=== PATIENT | female | born 1990 | race Caucasian/White ===

== ENCOUNTER 2020-09-23 14:00 | Outpatient (CLI) | payer OTHER ==
--- NOTE | 2020-09-24 15:48 | Mammography Report ---
BILATERAL DIGITAL SCREENING MAMMOGRAM 3D/2D: 09/23/2020 CLINICAL: Baseline exam. Routine screening. Family history of breast cancer. No prior exams were available for comparison. The tissue of both breasts is extremely dense, which l owers the sensitivity of mammography. No significant masses, calcifications, or other findings are seen in either breast. IMPRESSION: NEGATIVE There is no mammographic evidence of malignancy. A 1 year screening mammogram is recommended. This exam was interpreted at Station ID: [id number]. NOTE: For mammograms, a report in lay terms will be sent to the patient. Approximately 15% of breast malignancies will not be visualized mammographically. In the management of a palpable breast mass, a negative mammogram must not discourage biopsy of a clinically suspicious lesion. Electronically Signed By: Simone Jordan M.D., jr/maranda:09/23/2020 14:52:45 ACR BI-RADS Category 1: Negative 3341F PARENCHYMAL PATTERN: (VD) - The breast(s) demonstrate(s) extremely dense parenchyma, limiting the sen sitivity of mammography. BI-RADS CATEGORY: (1) - 1 RECOMMENDATION: (ANNUAL) - Recommend routine annual screening mammography. [id number] 1 year screening LATERALITY: (B)
== END 2020-09-23 14:01 | disposition home or self-care (01) ==
LOC: DI 14:00
DX: Z12.31 Encounter for screening mammogram for malignant neoplasm of breast (principal); Z80.3 Family history of malignant neoplasm of breast

== ENCOUNTER 2023-03-24 19:50 | Outpatient (CLI) | payer BC, OTHER ==
--- NOTE | 2023-03-24 22:04 | Ultrasound Report ---
PROCEDURE: OB 1st Trimester w/TV INDICATIONS: SCREENING FOR UNCERTAIN DATES OUTSIDE/PRIOR DATING DATA: Last menstrual period (LMP): 01/27/2023. LMP-based estimated date of delivery (JAMEY): 11/03/2023. TECHNIQUE: Real-time scanning was performed of the fetus and maternal pelvic organs, with image documentation. Endovaginal scanning was also performed to better visualize the fetus and maternal ovaries. COMPARISON: None. FINDINGS: Vertically oriented, slightly retroflexed uterus contains a fundal fluid collection with m oderate decidual response. Mean gestational sac diameter is 20.1 mm corresponding to a 6 week 6 day g estation. A yolk sac is present measuring 6 mm in diameter, slightly enlarged. A pole and amnion are seen . There is no detectable cardiac activity and pole. The average crown-rump length is 6.4 mm whi ch would correspond to a 6 week 3 day gestation. The right ovary contains a thin-walled cyst measuring 2.2 cm in diameter. No significant peripheral v ascularity. There is a second hemorrhagic appearing right ovarian cyst measuring 2 cm. The left ovary is normal follicular echotexture. There is a small inactive implantation bleed without mass effect m easuring 1.1 cm in thickness. The cervix is closed. No free fluid in the cul-de-sac. IMPRESSION: Single intrauterine with gestational age by crown-rump length of 6 weeks 3 days. No detectable cardiac activity. Findings are suspicious but not diagnostic of failure . Recommend follow-up imaging for viability in 7-10 days. Preliminary results given by the lathe hand to the ordering provider immediately following the study . Reviewed by: Ada Craft MD on 03/24/2023 10:03 PM PST Approved by: Ada Craft MD on 03/24/2023 10:03 PM PST Station ID: [id number]
== END 2023-03-24 19:51 | disposition home or self-care (01) ==
LOC: DI 19:50
PROVIDERS: ATTEND Nurse Practitioner Obstetrics & Gynecology
DX: Z36.87 Encounter for antenatal screening for uncertain dates (principal)

== ENCOUNTER 2023-03-26 12:24 | Outpatient (CLI) | payer BC | END 2023-03-26 12:25 | disposition home or self-care (01) | LOC: LAB 12:24 | PROVIDERS: ATTEND Nurse Practitioner Obstetrics & Gynecology | DX: O36.0190 Maternal care for anti-D [Rh] antibodies, unspecified trimester, not applicable or unspecified (principal) | CPT/HCPCS: 36415; 84702; 86900; 86901 ==

== ENCOUNTER 2023-03-28 13:31 | Outpatient (CLI) | payer BC | END 2023-03-28 13:32 | disposition home or self-care (01) | LOC: LAB 13:31 | PROVIDERS: ATTEND Nurse Practitioner Obstetrics & Gynecology | DX: O36.80X0 Pregnancy with inconclusive fetal viability, not applicable or unspecified (principal) | CPT/HCPCS: 36415; 84702 ==

== ENCOUNTER 2023-09-08 08:09 | Outpatient (CLI) | payer BC ==
--- NOTE | 2023-09-08 16:37 | Ultrasound Report ---
PROCEDURE: OB 1st Trimester w/TV INDICATIONS: HIST OF MISCARRIAGE OUTSIDE/PRIOR DATING DATA: Last menstrual period (LMP): 07/15/2023. LMP-based estimated date of delivery (JAMEY): 04/20/2024. First dating scan (date and location): 09/08/2023. Estimated date of delivery (JAMEY) from first dating scan: 04/21/2024. TECHNIQUE: Real-time scanning was performed of the fetus and maternal pelvic organs, with image documentation. Endovaginal scanning was also performed to better visualize the fetus and maternal ovaries. COMPARISON: 2023 FINDINGS: Intrauterine gestational sac present. Embryo: pole 1.42 cm corresponds with a 7 week 5 day gestation Heart rate: 150 bpm. Other: Subchorionic bleed measures 1.2 x 1.2 x 1.1 cm. Measurement variability in dating: +/- 4 weeks by LMP, +/- 7 days by mean sac diameter (use before 6 weeks gestation if crown-rump length not able to be measured), +/- 5 days by crown-rump length (6-12 weeks gestation). Maternal organs: Ovaries left-sided corpus luteum cyst 1.9 x 1.9 x 2.0 cm IMPRESSION: Single live intrauterine corresponds with 7 week 4 day gestation. Subchorionic bleed, 1.2 cm Reviewed by: Trevor Felipe MD on 09/08/2023 3:35 PM AKDT Approved by: Trevor Felipe MD on 09/08/2023 3:35 PM AKDT Station ID: [id number]
== END 2023-09-08 08:10 | disposition home or self-care (01) ==
LOC: DI 08:09
PROVIDERS: ATTEND Nurse Practitioner Obstetrics & Gynecology
DX: O26.21 Pregnancy care for patient with recurrent pregnancy loss, first trimester (principal); O20.8 Other hemorrhage in early pregnancy; Z3A.01 Less than 8 weeks gestation of pregnancy

== ENCOUNTER 2023-10-27 11:22 | Outpatient (CLI) | payer OTHER | END 2023-10-27 11:23 | disposition home or self-care (01) | LOC: LAB 11:22 | PROVIDERS: ATTEND Nurse Practitioner | DX: Z36.0 Encounter for antenatal screening for chromosomal anomalies (principal) ==

== ENCOUNTER 2024-04-26 01:40 | Inpatient (IN) ==
[2024-04-26 02:55] LABS: RUPTURE OF MEMBRANES PLUS POSITIVE (NEGATIVE)
[2024-04-26] MEDS ORDERED: LABETALOL 20 MG/4 ML SYRINGE IVP PRN ×3 (03:30)
[2024-04-26] MEDS ORDERED: fentaNYL 100 MCG/2 ML VIAL IVP PRN (03:30)
[2024-04-26] MEDS ORDERED: lidocaine 1% 20 ML MDV ID PRN (03:30)
[2024-04-26] MEDS ORDERED: OXYTOCIN/SODIUM CHLORIDE 500 ML IV PRN (03:30)
[2024-04-26] MEDS ORDERED: hydrALAZINE INJ 20 MG/ML VIAL IVP PRN (03:30)
[2024-04-26] MEDS ORDERED: OXYTOCIN 10 UNIT/ML VIAL IM PRN (03:30)
[2024-04-26] MEDS ORDERED: TERBUTALINE 1 MG/ML VIAL SUBQ PRN (03:30)
[2024-04-26] MEDS ORDERED: NIFEdipine 10 MG CAPSULE PO PRN (03:30)
[2024-04-26] MEDS ORDERED: TRANEXAMIC ACID IN NACL 1,000 MG/100 ML BAG IV PRN (03:30)
[2024-04-26] MEDS ORDERED: miSOPROStoL 200 MCG TABLET ONE (03:49)
[2024-04-26 04:17] LABS: BASOPHILS % (AUTO) 0.3 %; EOSINOPHILS % (AUTO) 0.5 %; HCT - HEMATOCRIT 36.9 % (37.0-47.0); HGB - HEMOGLOBIN 11.9 g/dL (12.0-16.0); LYMPHOCYTES % (AUTO) 11.8 %; MEAN CORPUSCULAR HEMOGLOBIN 28.6 pg (27.0-31.0); MEAN CORPUSCULAR HGB CONC 32.2 g/dL (32.0-36.0); MEAN CORPUSCULAR VOLUME 88.7 fL (81.0-99.0); MEAN PLATELET VOLUME 9.2 fL (7.9-10.8); MONOCYTES % (AUTO) 6.7 %; NEUTROPHILS % (AUTO) 80.2 %; PLT - PLATELET COUNT 364 10^3/uL (130-450); RED BLOOD COUNT 4.16 10^6/uL (4.20-5.40); WHITE BLOOD COUNT 20.6 x10^3/uL (4.8-10.8)
[2024-04-26] MEDS: AMPICILLIN 2 GM in SODIUM CHLORIDE 0.9% MINIBAG 100 ML IV ONE (04:19)
[2024-04-26] MEDS: LACTATED RINGERS 1,000 ML IV PRN (04:20)
[2024-04-26 04:31] LABS: ABNORMAL LYMPHS % (MANUAL) 0 %
[2024-04-26 04:34] LABS: ALBUMIN 3.4 g/dL (3.2-5.5); ALBUMIN/GLOBULIN RATIO 1.1 (1.0-2.2); BILIRUBIN,TOTAL 0.4 mg/dL (0.2-1.0); CALCIUM 8.3 mg/dL (8.5-10.3); CREATININE 0.7 mg/dL (0.6-1.3); POTASSIUM 4.2 mmol/L (3.5-4.5); TOTAL PROTEIN 6.6 g/dL (6.4-8.9)
[2024-04-26 05:08] LABS: BAND NEUTROPHILS % (MANUAL) 6 %; DIFFERENTIAL COMMENT MANUAL DIFFERENTIAL; LYMPHOCYTES # (MANUAL) 3.7 10^3/uL (1.5-3.5); LYMPHOCYTES % (MANUAL) 18 %; MONOCYTES # (MANUAL) 0.6 10^3/uL (0.0-1.0); NEUTROPHILS # (MANUAL) 16.3 10^3/uL (1.5-6.6); PLATELET ESTIMATE, MANUAL NORMAL (130-450,000) (NORMAL); PLATELET MORPHOLOGY NORMAL APPEARANCE (NORMAL); RBC MORPHOLOGY (MULTIPLE) NORMAL APPEARANCE (NORMAL); WBC MORPHOLOGY (MULTIPLE) NORMAL APPEARANCE (NORMAL)
[2024-04-26] MEDS: AMPICILLIN 1 GM in SODIUM CHLORIDE 0.9% MINIBAG 100 ML IV SCH (08:23)
[2024-04-26] MEDS: SODIUM CHLORIDE FLUSH 0.9% 10 ML SYRINGE IVP PRN (08:29)
--- NOTE | 2024-04-26 08:48 | PROVIDER PROGRESS NOTE ---
HPI Current : Vital Signs Temperature 37.2 C 04/26/24 04:35 Pulse Rate 75 04/26/24 04:35 Respiratory Rate 18 04/26/24 04:35 Blood Pressure 106/71 04/26/24 04:35 O2 Saturation 100 04/26/24 02:10 Procedures Findings: 34 yo @ 40+6 days gestation presented to L&D for triage for labor evaluation and questionable rupture of membranes. Reactive NST, baseline FHT 130-140's, moderate variability, positive accelerations, no decelerations. Contractions q 4-5 minutes. SVE by RN exam, /-2 grossly ruptured. ROM + positive. Orders given for admission.
--- NOTE | 2024-04-26 09:11 | HISTORY & PHYSICAL EXAMINATION ---
Admit History Smoking Status: Never smoker Other Maternal History Other Maternal History: Carli is a 34-year-old @ 40+6 by 7+4 week ultrasound. She presented to Labor and Delivery last night after midnight with regular contractions and questionable rupture of membranes. Believes her water broke 0000 on 04/26/24. She had a small amount of pink-tinged leaking. Her rupture of membranes tested positive, and her cervical exam was 380/-2 cephalic presentation by RN exam (VTX by BSUS yesterday). She has been a patient of [facility] since [facility] for continuity of midwifery services. Her CBC showed hemoglobin of 11.9, hematocrit of 36.9, and platelets of 364. Blood type is O positive with a negative antibody screen. Comprehensive metabolic panel results: creatinine 0.7, AST 25, ALT 16, and ALP 182. Group B strep was positive, and ampicillin for GBS prophylaxis was initiated. No known antibiotic allergies. Management options were reviewed. She wishes to continue with expectant management as she is lev every 3 to 5 minutes, palpating moderately although only rating her pain with contractions 3-4/10 vps. She has done some breast pumping which increased her contractions for a short while. She is pen to augmentation if needed. Risks of infection with repeat cervical exams were discussed, and she is okay with declining a cervical exam at this time. Re-evaluation planned in approximately 4-5 hours. Discussed possible augmentation with misoprostol or oxytocin at that time. She is comfortable with intervention if needed. Preferring to have a low intervention/unmedicated but okay with both if indicated/recommended. Her has been overall, uncomplicated. ROS: No Headache, visual changes or right upper quadrant abdominal pain. Denies significant N/V. Denies urinary urgency or dysuria. All other symptoms reviewed and were negative except per HPI. In the event of an emergency, accepts the administration of blood products. LMP: 07/15/2023 JAMEY by LMP: 04/20/2024 US: @ 7.4wks JAMEY 04/21/2024 Final JAMEY: 04/20/2024 Partner: Bob Vaca Medical Hx: Anxiety. Migraine without aura (pre- sumatriptan) Surgical Hx: None Social Hx: Monogamous with male partner. Denies current use of alcohol or tobacco, marijuana or other recreational drugs. Reports that she is safe in current relationship. Family Hx: Denies family history of congenital anomalies, Cystic Fibrosis or chromosomal abnormalities. Mother has had recurrent breast cancer, dx at age 32. G1: SAB @ 8wks G2: Current. Allergies: NKDA, seasonal RX: aspirin, Zyrtec, Famotadine, PNV, Zofran, reglan FMHX: Mother- Breast cancer Surgeries: None PROBLEMS: Marginal cord insertion 1.5cm from placenta edge. Consider growth ultrasound in the third trimester. Pre- Weight: 138 BMI: 25.2 Blood type: O+ Antibody Screen: neg CBC: PLT/HCT/HGB 480/41.2/13.5 RUB: immune VZV: immune HBsAg: non-reactive HepC: non-reactive RPR: non-reactive HIV: non-reactive Flu: [facility] 12/07 Covid: greens 12/07 PAP: 2022 Normal GC/CT: neg HSV: denies in self and partner Genetic testing: NIPT neg FAS: WNL with the exception of marginal cord insertion (1.57cm from placental edge) - consider ultrasound 32-34wks Placenta:posterior w/o previa Cord: 3VC JACKELINE: 15.8cm WNL EFW: 327.3g 31st%ile 50gm OGCT: 110 3HR GTT: TDAP: 01/24 Breast Pump: 01/24 RSV: 03/19/2024 CBC: PLT 308 /HCT 36.7/HGB 12.7 RPR: NR GBS: 03/26/2024, POSITIVE Delivery plan: MOD: Anticipate PP BC: Physical exam: Normocephalic, atraumatic Abdomen gravid, soft, nontender. EFW 3400 FHR baseline 140, moderate variability, + accelerations, no decelerations Contractions palpate moderate every 2-5 minutes SVE 3/80/-2, vertex, membranes grossly ruptured Bilateral LE's trace edema to ankles Mood is good. Assessment: 34 yo @ 40+6 weeks gestation by 7+4 week ultrasound SROM 04/26/2024 @ 0000, clear/pink tinged fluid Early labor FHR 140 Cat I GBS POSITIVE Plan: Admit to [facility] for Expectant management Reevaluate for augmentation as indicated Intermittent heart rate auscultation. GBS prophylaxis as indicated Jacuzzi PRN. Nitrous oxide PRN. Epidural PRN Maternal Request. Anticipate . HPI Current : Vital Signs Temperature 37.2 C 04/26/24 04:35 Pulse Rate 75 04/26/24 04:35 Respiratory Rate 18 04/26/24 04:35 Blood Pressure 106/71 04/26/24 04:35 O2 Saturation 100 04/26/24 02:10 Meds/Allgy Home Medications Ambulatory Orders Medication Instructions Recorded Confirmed aspirin 81 mg tablet,delayed 81 mg PO QDAY 12/08/23 04/25/24 release cetirizine 10 mg tablet (Zyrtec) 10 mg PO QDAY PRN 12/08/23 04/25/24 famotidine 10 mg tablet (Pepcid AC) 10 mg PO QDAY 12/08/23 04/25/24 vits no.126-ferrous fum tab PO 12/08/23 04/25/24 28 mg iron-folic acid 800 mcg tablet (Classic ) Allergies Allergies Allergy/AdvReac Type Severity Reaction Status Date / Time cat dander Allergy Severe Unknown Verified 04/25/24 13:08 dog dander Allergy Severe Unknown Verified 04/25/24 13:08 house dust Allergy Severe Unknown Verified 04/25/24 13:08 tree and shrub pollen Allergy Severe Unknown Verified 04/25/24 13:08 PFSH Active Problems All Active Problems (Updated 03/31/24 @ 09:30 by DEEDEE Chamorro) Group B Streptococcus carrier, antepartum (Acute) Marginal insertion of umbilical cord affecting management of mother (Acute) Encounter for other specified screening (Acute) Supervision of normal first in second trimester (Acute) Medical History Medical History (Updated 03/31/24 @ 09:30 by DEEDEE Chamorro) Migraines Anxiety Family History Family History (Updated 12/28/23 @ 09:36 by Emily Bowman MA) Mother Breast cancer Social History Social History (Updated 12/05/23 @ 14:59 by Mirna Fonseca LPN) Smoking Status: Never smoker Do you dip or chew tobacco?: No Living arrangement: At home Living Condition: With spouse/s.o. Physical Abdominal Exam Vital Signs: Temp Pulse Resp BP Pulse Ox 37.2 C 75 18 106/71 100 04/26/24 04:35 04/26/24 04:35 04/26/24 04:35 04/26/24 04:35 04/26/24 02:10 Plan for Labor Plan For Labor I expect patient to be DC'd or transferred within 96 hours.: Yes Conclusion/Plan Lab Results 04/26/24 04:06 04/26/24 04:06
--- NOTE | 2024-04-26 12:30 | PHARMACY PROGRESS NOTE ---
Best Possible Medication History Admit Date and Time: 04/26/24 0330 Home Medications Medication Instructions Recorded Confirmed Type aspirin 81 mg tablet,delayed 81 mg PO QDAY 12/08/23 04/26/24 History release cetirizine 10 mg tablet (Zyrtec) 10 mg PO QDAY PRN allergy symptoms 12/08/23 04/26/24 History famotidine 10 mg tablet (Pepcid AC) 10 mg PO QDAY 12/08/23 04/26/24 History vits no.126-ferrous fum 1 tab PO DAILY 12/08/23 04/26/24 History 28 mg iron-folic acid 800 mcg tablet (Classic ) Processed by: Pharmacy Medications reviewed in ED?: No Medication History completed: Yes [facility] Statement: As the person ultimately responsible for medication therapy, providers are able to order a medication from an existing home medication list in [facility] via the "Reconcile Routine" prior to Confirmation of that medication by desktop support consultant. Such practice is discouraged except when the physician, in their clinical judgment, deems that a medical need exists for a medication without regard to previous use.
--- NOTE | 2024-04-26 12:46 | PROVIDER PROGRESS NOTE ---
Labor Progress Note Labor Progress Note Labor Progress Note/Additional Text: Category I tracing. Contractions intermittent. Took a 45 minute nap. Discussed risks of prolonged rupture and misoprostol vs pitocin. /- minimal cervical change since admission. Open to pitocin augmentation.
--- NOTE | 2024-04-26 13:20 | PROVIDER PROGRESS NOTE ---
Labor Progress Note Labor Progress Note Labor Progress Note/Additional Text: Approximately 30 minutes after orders were placed for oxytocin, but before it was initiated, patient had two contractions with two variable decelerations. Recommended position changes and 30 minutes of reactive tracing prior to initiating pitocin.
--- NOTE | 2024-04-26 14:06 | PROVIDER PROGRESS NOTE ---
Subjective Subjective Subjective: Patient had recurrent variable decelerations with irregular contractions. Reviewed goal of moving towards delivery and the necessity of contractions for ongoing cervical change. Discussed we were unable to initate pitocin with the variables. forbag ruptured with amniohook. IUPC placed. Order for amnioinfusion placed to infuse. Will reevaluate for pitocin augmentation. Current Medications Current Medications Current Medications: Current Medications Generic Name Dose Route Start Last Admin Trade Name Freq PRN Reason Stop Dose Admin Fentanyl 50 mcg 04/26/24 03:30 Fentanyl 100 Mcg/2 Ml Vial IVP Q1H PRN Severe Pain (score 7-10) Hydralazine HCl 5 - 10 mg 04/26/24 03:30 Hydralazine Inj 20 Mg/Ml Vial IVP Q20M PRN SBP> or= 160 OR DBP> or= 110 Protocol Lactated Ringer's 500 mls @ 999 mls/hr 04/26/24 03:30 04/26/24 13:14 Lr IV 0 mls/hr PRN PRN Infusion intolerance of labor Oxytocin/Sodium Chloride 500 mls @ 999 mls/hr 04/26/24 03:30 Pitocin/Sodium Chloride IV PRN PRN POST- HEMORR PREVENTION Protocol 999 MILLIUNIT/MIN Tranexamic Acid 1,000 mg in 100 mls @ 600 mls/hr 04/26/24 03:30 Tranexamic 1,000 Mg/100ml-Nacl IV Q30M PRN EBL >1200mL and within 3hr Ampicillin Sodium 1 gm/ Sodium 100 mls @ 200 mls/hr 04/26/24 08:00 04/26/24 12:33 Chloride IV Infused Q4H MARISOL Infusion Oxytocin/Sodium Chloride 500 mls @ 2 mls/hr 04/26/24 13:00 Pitocin/Sodium Chloride IV TITR MARISOL Protocol 2 MILLIUNIT/MIN Sodium Chloride 1,000 mls @ 125 mls/hr 04/26/24 14:00 Normal Saline 0.9% IY 04/26/24 21:59 ONCE ONE Labetalol HCl 20 - 80 mg 04/26/24 03:30 Labetalol 20 Mg/4 Ml Syringe IVP Q10M PRN SBP> or= 160 OR DBP> or= 110 Protocol Labetalol HCl 20 mg 04/26/24 03:30 Labetalol 20 Mg/4 Ml Syringe IVP .ONCE PRN SBP> or= 160 OR DBP> or= 110 Protocol Labetalol HCl 20 - 40 mg 04/26/24 03:30 Labetalol 20 Mg/4 Ml Syringe IVP Q10M PRN SBP> or= 160 OR DBP> or= 110 Protocol Lidocaine HCl 20 ml 04/26/24 03:30 Lidocaine 1% 20 Ml Mdv ID 04/29/24 03:30 .ONCE PRN PERINEAL REPAIR Nifedipine 10 - 20 mg 04/26/24 03:30 Nifedipine 10 Mg Capsule PO Q20M PRN SBP> or= 160 OR DBP> or= 110 Protocol Oxytocin 10 unit 04/26/24 03:30 Oxytocin 10 Unit/Ml Vial IM .ONCE PRN Step One if no IV access. Sodium Chloride 10 ml 04/26/24 03:30 04/26/24 12:33 Sodium Chloride Flush 0.9% 10 Ml Syringe IVP 10 ml PRN PRN Administration NEEDED PER PROVIDER ORDERS Terbutaline Sulfate 0.25 mg 04/26/24 03:30 Terbutaline 1 Mg/Ml Vial SUBQ .ONCE PRN Tachystole Objective Vital Signs/Intake & Output Vital Signs: Vital Signs x48h Temp Pulse Resp BP 04/26/24 10:23 36.6 C 85 118/76 04/26/24 08:00 36.8 C 98 15 122/74 Intake & Output: Intake & Output 04/23/24 04/24/24 04/25/24 04/26/24 23:59 23:59 23:59 23:59 Intake Total 410 / 410 Balance 410 / 410 Weight (kg) 175 lb Lab Results 04/26/24 04:06 04/26/24 04:06 Other Labs: Lab Results x24hrs 04/26/24 04/26/24 Range/Units 04:06 02:28 WBC 20.6 H (4.8-10.8) x10^3/uL RBC 4.16 L (4.20-5.40) 10^6/uL Hgb 11.9 L (12.0-16.0) g/dL Hct 36.9 L (37.0-47.0) % MCV 88.7 (81.0-99.0) fL MCH 28.6 (27.0-31.0) pg MCHC 32.2 (32.0-36.0) g/dL RDW 13.0 (12.0-15.0) % Plt Count 364 (130-450) 10^3/uL MPV 9.2 (7.9-10.8) fL Neut # (Auto) Not Reportable Lymph # (Auto) Not Reportable Clare # (Auto) Not Reportable Eos # (Auto) Not Reportable Baso # (Auto) Not Reportable Absolute Nucleated RBC Not Reportable Total Counted 100 Band Neuts % (Manual) 6 (0 - 10) % Abnorm Lymph % (Manual) 0 % Nucleated RBC % Not Reportable Neutrophils # (Manual) 16.3 H (1.5-6.6) 10^3/uL Lymphocytes # (Manual) 3.7 H (1.5-3.5) 10^3/uL Monocytes # (Manual) 0.6 (0.0-1.0) 10^3/uL Eosinophils # (Manual) 0.0 (0-0.7) 10^3/uL Basophils # (Manual) 0.0 (0-0.1) 10^3/uL Differential Comment MANUAL DIFFERENTIAL WBC Morphology NORMAL APPEARANCE (NORMAL) Platelet Estimate NORMAL (130-450,000) (NORMAL) Platelet Morphology NORMAL APPEARANCE (NORMAL) RBC Morph Micro Appear NORMAL APPEARANCE (NORMAL) Sodium 134 L (135-145) mmol/L Potassium 4.2 (3.5-4.5) mmol/L Chloride 105 (101-111) mmol/L Carbon Dioxide 21 (21-32) mmol/L Anion Gap 8.0 (6-13) BUN 9 (6-20) mg/dL Creatinine 0.7 (0.6-1.3) mg/dL Estimated GFR (MDRD) 96 (>89) Glucose 81 (74-104) mg/dL Calcium 8.3 L (8.5-10.3) mg/dL Total Bilirubin 0.4 (0.2-1.0) mg/dL AST 25 (10-42) IU/L ALT 16 (10-60) IU/L Alkaline Phosphatase 182 H (42-121) IU/L Total Protein 6.6 (6.4-8.9) g/dL Albumin 3.4 (3.2-5.5) g/dL Globulin 3.2 (2.1-4.2) g/dL Albumin/Globulin Ratio 1.1 (1.0-2.2) Membranes Rupture POSITIVE A (NEGATIVE) Blood Type O POSITIVE Antibody Screen NEGATIVE
[2024-04-26] MEDS ORDERED: SODIUM CHLORIDE 0.9% 1,000 ML ONE (14:07)
[2024-04-26] MEDS: SODIUM CHLORIDE 0.9% 1,000 ML IY ONE (14:09)
[2024-04-26] MEDS: OXYTOCIN/SODIUM CHLORIDE 500 ML IV SCH (14:45)
[2024-04-26] MEDS ORDERED: ROPIVACAINE 0.2% 200 MG/100 ML BAG EP ONE (18:54)
[2024-04-26] MEDS ORDERED: NALBUPHINE 10 MG/ML AMP IVP PRN (19:42)
[2024-04-26] MEDS ORDERED: diphenhydrAMINE INJ 50 MG/ML VIAL IVP PRN (19:42)
[2024-04-26] MEDS ORDERED: NALOXONE 0.4 MG/ML VIAL IVP PRN (19:42)
[2024-04-26] MEDS ORDERED: METOCLOPRAMIDE 10 MG/2 ML VIAL IVP PRN (19:42)
[2024-04-26] MEDS ORDERED: ePHEDrine 50 MG/ML VIAL IVP PRN (19:42)
--- NOTE | 2024-04-26 19:51 | ANESTHESIA PROCEDURE NOTE ---
Pre-Anesthesia VS, & Labs Diagnosis Surgical Diagnosis:: active labor Procedure Procedure: labor epidural Vitals Vital Signs: Temp Pulse Resp BP Pulse Ox 36.9 C 89 15 127/84 100 04/26/24 14:27 04/26/24 14:27 04/26/24 08:00 04/26/24 14:27 04/26/24 02:10 NPO NPO: Other (clears for now until delivery) Is Patient ?: Yes Lab Results Current Lab Results: Laboratory Tests 04/26/24 04:06: WBC 20.6 H, RBC 4.16 L, Hgb 11.9 L, Hct 36.9 L, MCV 88.7, MCH 28.6, MCHC 32.2, RDW 13.0, Plt Count 364, MPV 9.2, Neut # (Auto) Not Reportable, Lymph # (Auto) Not Reportable, Arroyo # (Auto) Not Reportable, Eos # (Auto) Not Reportable, Baso # (Auto) Not Reportable, Absolute Nucleated RBC Not Reportable, Total Counted 100, Band Neuts % (Manual) 6, Abnorm Lymph % (Manual) 0, Nucleated RBC % Not Reportable, Neutrophils # (Manual) 16.3 H, Lymphocytes # (Manual) 3.7 H, Monocytes # (Manual) 0.6, Eosinophils # (Manual) 0.0, Basophils # (Manual) 0.0, Differential Comment MANUAL DIFFERENTIAL, WBC Morphology NORMAL APPEARANCE, Platelet Estimate NORMAL (130-450,000), Platelet Morphology NORMAL APPEARANCE, RBC Morph Micro Appear NORMAL APPEARANCE, Sodium 134 L, Potassium 4.2, Chloride 105, Carbon Dioxide 21, Anion Gap 8.0, BUN 9, Creatinine 0.7, Estimated GFR (MDRD) 96, Glucose 81, Calcium 8.3 L, Total Bilirubin 0.4, AST 25, ALT 16, A lkaline Phosphatase 182 H, Total Protein 6.6, Albumin 3.4, Globulin 3.2, Albumin/Globulin Ratio 1.1, Blood Type O POSITIVE, Antibody Screen NEGATIVE 04/26/24 04:06 04/26/24 04:06 Meds/Allgy Home Medications Ambulatory Orders Medication Instructions Recorded Confirmed aspirin 81 mg tablet,delayed 81 mg PO QDAY 12/08/23 04/26/24 release cetirizine 10 mg tablet (Zyrtec) 10 mg PO QDAY PRN allergy symptoms 12/08/23 04/26/24 famotidine 10 mg tablet (Pepcid AC) 10 mg PO QDAY 12/08/23 04/26/24 vits no.126-ferrous fum 1 tab PO DAILY 12/08/23 04/26/24 28 mg iron-folic acid 800 mcg tablet (Classic ) Allergies Allergies Allergy/AdvReac Type Severity Reaction Status Date / Time cat dander Allergy Severe Unknown Verified 04/25/24 13:08 dog dander Allergy Severe Unknown Verified 04/25/24 13:08 house dust Allergy Severe Unknown Verified 04/25/24 13:08 tree and shrub pollen Allergy Severe Unknown Verified 04/25/24 13:08 PFSH Active Problems All Active Problems (Updated 03/31/24 @ 09:30 by DEEDEE Chamorro) Group B Streptococcus carrier, antepartum (Acute) Marginal insertion of umbilical cord affecting management of mother (Acute) Encounter for other specified screening (Acute) Supervision of normal first in second trimester (Acute) Medical History Medical History (Updated 03/31/24 @ 09:30 by DEEDEE Chamorro) Migraines Anxiety Family History Family History (Updated 12/28/23 @ 09:36 by Emily Bowman MA) Mother Breast cancer Social History Social History (Updated 12/05/23 @ 14:59 by Mirna Fonseca LPN) Smoking Status: Never smoker Do you dip or chew tobacco?: No Living arrangement: At home Living Condition: With spouse/s.o. Anesthesia Exam (Expanded) Exam General: Alert and Oriented x3 Dental: WNL Mallampati classification: III Thyromental Distance: greater than 6 cm Respiratory: Lungs clear Cardiovascular: Regular rate Plan Plan Anesthesia Type: Epidural Consent for Procedure(s) Verified and Reviewed: Yes Code Status: Attempt Resuscitation ASA Classification ASA classification: 2-Mild systemic disease Is this case an emergency?: No
[2024-04-26] MEDS: LACTATED RINGERS 500 ML IV ONE (22:57)
--- NOTE | 2024-04-27 00:05 | DELIVERY NOTE ---
Delivery Note Delivery Comments (Free Text/Narrative) Delivery Comments (Free Text/Narrative): This 34 -year-old, G 2 P 1 @ 40+6weeks gestation by 7+4 week ultrasound/ LMP presented @ 0000 on 04/26/2024 following SROM. SVE upon admission 80/-2, unchanged 12 hours later. She was initially lev regularly, then contractions near stopped and she was able to sleep some. Intermittent category II tracing prior to pushing, and an IUPC was placed and amnioinfusion and frequent positional changes were used throughout her extended labor course for intrauterine resuscitation. Oxytocin max infusion was 10mu/min. GBS positive, adequately treated. Did not feel relief from nitrous. Epidural placed upon maternal request. She then progressed to complete/complete @ X and ready to deliver. Second stage began @ X. : Normal spontaneous vaginal delivery of a viable male on 04/27/2024 @ X. Nuchal x X, reduced. The was placed on maternal abdomen, stimulated, dried and placed skin to skin. Apgars X & X @ 1 & 5 minutes. The umbilical cord was allowed to stop pulsating at which time it was doubly clamped by delivering provider and cut by FOB. 3VC. Cord blood was obtained. Fundal massage and gently cord traction applied for active management of the third stage, placenta delivered spontaneously and intact and appeared normal @ X. QBL/EBL X. Placenta was not sent to pathology. Pitocin administered via IV for hemostasis and allowed to run freely. Uterine massage was performed until uterus was deemed firm. weight pending at this time. Inspection of the perineum noted an XXX first-degree midline laceration. The laceration was repaired under epidural anesthesia with running 3-0 vicryl rapide, repaired in standards fashion under sterile conditions. Upon re- inspection the patient was hemostatic. Uterus again massaged and found to be firm. Needle and sponge counts were correct. Uterine fundus firm and there is no excessive bleeding. Tissues well approximated. Skin to skin initiated. Family bonding well. Both mother and baby are in stable condition.
[2024-04-27] MEDS: ROPIVACAINE 0.2% 200 MG/100 ML BAG EP PRN (01:24)
--- NOTE | 2024-04-27 01:48 | PROVIDER PROGRESS NOTE ---
Labor Progress Note Labor Progress Note Labor Progress Note/Additional Text: This 34 -year-old, G 2 P 1 @ 40+6weeks gestation by 7+4 week ultrasound/ LMP presented @ 0000 on 04/26/2024 following SROM. SVE upon admission /-2, unchanged 12 hours later. She was initially lev regularly, then contractions near stopped and she was able to sleep some. Intermittent category II tracing prior to pushing, and an IUPC was placed and amnioinfusion and frequent positional changes were used throughout her extended labor course for intrauterine resuscitation. Oxytocin max infusion was 10mu/min. GBS positive, adequately treated. Did not feel relief from nitrous. Persistent but reducible anterior lip for approximately 20 minutes of pushing. She then progressed to complete/complete and active pushing began. Epidural placed upon maternal request. Initially had great pushing efforts and although second stage was complicated by intermittent periods of recurrent variables, baby had good recovery and pushing would resume. station not descended past +1 station and despite frequent changes in pushing positions. Maternal efforts exhausted and decelerations became more recurrent and more significant. Dr. Thompson formally consulted and to the bedside for assessment for vacuum application. She discussed that at this time and station, vacuum application was not a safe option and a section was recommended. Extended discussion about risk of c/s and expectations of surgery and recovery. Surgery/pediatric team recalled. Care transferred to Dr. Thompson.
[2024-04-27] MEDS ORDERED: LIDOCAINE-PF 2% 10 ML AMP SUBQ ONE (01:52)
[2024-04-27] MEDS ORDERED: CITRIC ACID/SODIUM CITRATE 15 ML UDC PO ONE (01:54)
[2024-04-27] MEDS ORDERED: ceFAZolin 2 GM VIAL ONE (01:54)
[2024-04-27] MEDS: ONDANSETRON 4 MG/2 ML VIAL IVP PRN (01:57)
[2024-04-27] MEDS: CITRIC ACID/SODIUM CITRATE 15 ML UDC PO ONE (02:00)
[2024-04-27] MEDS: ceFAZolin (2G) 2 GM in SODIUM CHLORIDE 0.9% MINIBAG 100 ML IV ONE (02:00)
[2024-04-27] MEDS ORDERED: ePHEDrine 50 MG/ML VIAL IVP ONE (02:07)
[2024-04-27] MEDS ORDERED: DEXMEDETOMIDINE 200 MCG/2 ML VIAL ONE (02:07)
[2024-04-27] MEDS: AZITHROMYCIN INJ 500 MG in SODIUM CHLORIDE 0.9% 250 ML IV ONE (02:25)
[2024-04-27] MEDS ORDERED: fentaNYL 100 MCG/2 ML VIAL ONE (02:26)
[2024-04-27] MEDS ORDERED: OXYTOCIN 10 UNIT/ML VIAL ONE (02:30)
[2024-04-27] MEDS ORDERED: LIDOCAINE 2%-EPI 1:100000 20 ML MDV ONE (02:50)
[2024-04-27] MEDS ORDERED: TRANEXAMIC ACID 1,000 MG/10 ML VIAL ONE (02:50)
[2024-04-27] MEDS ORDERED: NALOXONE 0.4 MG/ML VIAL IVP PRN ×2 (03:09→03:22)
[2024-04-27] MEDS ORDERED: ATROPINE ABBOJECT 1 MG/10 ML SYRINGE IVP PRN (03:09)
[2024-04-27] MEDS ORDERED: ePHEDrine 50 MG/ML VIAL IVP PRN (03:09)
[2024-04-27] MEDS ORDERED: HYDROmorphone 0.5 MG/0.5 ML SYRINGE IVP PRN (03:09)
[2024-04-27] MEDS ORDERED: MORPHINE 2 MG/ML CARPUJECT IVP PRN (03:09)
[2024-04-27] MEDS ORDERED: METOCLOPRAMIDE 10 MG/2 ML VIAL IVP PRN (03:09)
[2024-04-27] MEDS ORDERED: fentaNYL 100 MCG/2 ML VIAL IVP PRN (03:09)
[2024-04-27] MEDS ORDERED: ONDANSETRON 4 MG/2 ML VIAL IVP PRN (03:09)
[2024-04-27] MEDS ORDERED: ACETAMINOPHEN 1,000 MG/100 ML 1,000 MG/100 ML BAG IV ONE (03:10)
[2024-04-27] MEDS ORDERED: ROPIVACAINE 0.5% PF 20 ML VIAL ONE (03:15)
[2024-04-27] MEDS ORDERED: DEXAMETHASONE 4 MG/ML VIAL ONE (03:17)
[2024-04-27] MEDS ORDERED: NIFEdipine 10 MG CAPSULE PO PRN (03:22)
[2024-04-27] MEDS ORDERED: OXYTOCIN/SODIUM CHLORIDE 500 ML IV PRN (03:22)
[2024-04-27] MEDS ORDERED: hydrALAZINE INJ 20 MG/ML VIAL IVP PRN ×2 (03:22)
[2024-04-27] MEDS ORDERED: LABETALOL 20 MG/4 ML SYRINGE IVP PRN ×3 (03:22)
[2024-04-27] MEDS: ACETAMINOPHEN 500 MG TABLET PO SCH (03:30)
--- NOTE | 2024-04-27 03:44 | OPERATIVE REPORT ---
Operative Report General Admit Date: 04/26/24 Procedure Data: Operation Date: 04/27/24 02:15 Proposed Procedures p Section(Bilateral) - Brandi Thompson MD Actual Procedures p Section(Bilateral) - Brandi Thompson MD Anesthesia Type Epidural Case Staff Anesthesia Provider: Justyna Troy Assisting Provider: Geeta Bernal Case Times Procedure Start: 04/27/24 02:27 Time out: 04/27/24 02:26 Pre-Op Diagnosis: prolonged 2nd stage of labor Post Op Diagnosis: OP baby stuck in pelvis Procedure Note Intake, IV Amount (ml): 700 Estimated Blood Loss (ml): 500 Output, Urine Amount (ml): 275 Indications: 34 yo G1 in labor all day. SROM over 24 hours ago. Labor induction. got to complete and pushed for 3 hours then rested. severe back pain. too tired to push more. Assessed for vacuum and baby's head is +1 station and asynclitic. recommeded c section. She agreed. procedure and risks discussed. Findings: live baby with good apgars. baby was OP. stuck deep into pelvis. Lower uterine segment very thin and into cervix. Bladder quite high. tubes and ovaries appeared normal. Complications: none Other Other Information/Narrative: Procedure: Low Transverse Section. Anesthesia: Justyna Troy CRNA. epidural Metal Numerical Control Programmer: My regional administrative assistant was scrubbed and present during the entire procedure and assisted with visualization, hemostasis, fundal pressure for infant delivery, and closure. Procedure Details The risks, benefits, complications, treatment options, and expected outcomes were discussed with the patient. The patient concurred with the proposed plan, giving informed consent. The patient was taken to the Operating Room. 2 grams of Cefazolin, 500 mg Azithromycin and 1 gm of IV acetominophen were given. She had sequential compression devices on her lower extremities. Herrmann catheter was placed. Vaginal prep was done. A Time Out was held and the above information confirmed. The patient was prepped in the usual sterile manner. Drapes were placed. Anesthesia was tested and not adequate so 10 cc lidocaine was injected into the area of incision. With injection she was not painful. A Pfannenstiel incision was made and carried down through the subcutaneous tissue to the fascia. Fascial incision was made and extended transversely. The fascia was from the underlying rectus muscles superiorly and inferiorly. The peritoneum was identified and entered. Peritoneal incision was stretched. The Saqib retractor was placed and rolled down. The uterus was palpated to examine lie. A low transverse uterine incision was made. In the end it was a bit high in the uterus as the lower uterine segment was paper thin. I cut at the level of some palpable tissue. The incision was stretched manually. no fluid was seen. The baby was elevated through the incision. It was very difficult to get the baby's head up and then once the head was out, it was hard to get the shoulders out. The right shoulder was partly out and I was able to get my finger under the arm and deliver the baby. Once the baby was delivered and we stimulated and baby was quite dusky. Cord was clamped long and cut and baby was given to peds. The placenta was removed intact using gentle traction and appeared normal. The uterine outline, tubes and ovaries appeared normal. The uterine incision was closed with running locked sutures of 0 Monocryl suture. A second horizontal imbricating layer was placed and then a third layer was to bring the serosa together. There were extensions on both sides towards the cervix that I re paired with the hysterotomy. Given all the raw surfaces, TXA was given as I was starting repair. Hemostasis was observed. Irrigation was done. The Saqib retractor was removed. Rectus muscles were examined carefully for bleeding. The fascia was then reapproximated with running sutures of 0 Vicryl. The subcutaneous tissue was brought together with 3.0 Monocryl suture and the skin was closed with 4.0 Vicryl in subcuticular fascia. Wide steri strip was placed over the wound. Bandage was placed. Uterus was expressed. Fundus was firm. Patient was then brought to the PACU in stable condition. Instrument, sponge, and needle counts were correct prior the abdominal closure and at the conclusion of the case. Drains: Herrmann catheter to gravity. Urine was initially bloody and then was completely clear. Disposition: back to her room on FBP for recovery. Plan: Routine post op care
--- NOTE | 2024-04-27 03:50 | HISTORY & PHYSICAL EXAMINATION ---
Chief Complaint Chief Complaint Chief Complaint: arrest of descent, prolonged 2nd stage of labor. History of Present Illness History of Present Illness HPI Comment/Other: Patient has been having labor induced all day. intermittent variable decels. got to complete and pushed over 3 hrs. Very swollen, exhausted, back in a lot of pain. Assessed for vacuum and baby still +1 station. seems OP and acynclitic. recommended c section. She and her partner agree. Meds/Allgy Home Medications Ambulatory Orders Medication Instructions Recorded Confirmed aspirin 81 mg tablet,delayed 81 mg PO QDAY 12/08/23 04/26/24 release cetirizine 10 mg tablet (Zyrtec) 10 mg PO QDAY PRN allergy symptoms 12/08/23 04/26/24 famotidine 10 mg tablet (Pepcid AC) 10 mg PO QDAY 12/08/23 04/26/24 vits no.126-ferrous fum 1 tab PO DAILY 12/08/23 04/26/24 28 mg iron-folic acid 800 mcg tablet (Classic ) Allergies Allergies Allergy/AdvReac Type Severity Reaction Status Date / Time cat dander Allergy Severe Unknown Verified 04/25/24 13:08 dog dander Allergy Severe Unknown Verified 04/25/24 13:08 house dust Allergy Severe Unknown Verified 04/25/24 13:08 tree and shrub pollen Allergy Severe Unknown Verified 04/25/24 13:08 [facility] Active Problems All Active Problems (Updated 04/27/24 @ 03:49 by Brandi Thompson MD) Delivery by section (Acute) Arrest of descent, delivered, current hospitalization (Acute) Prolonged rupture of membranes, greater than 24 hours, delivered, current hospitalization (Acute) Group B Streptococcus carrier, antepartum (Acute) Marginal insertion of umbilical cord affecting management of mother (Acute) Supervision of normal first in second trimester (Acute) Medical History Medical History (Updated 04/27/24 @ 03:49 by Brandi Thompson MD) Migraines Anxiety Family History Family History (Updated 12/28/23 @ 09:36 by Emily Bowman MA) Mother Breast cancer Social History Social History (Updated 12/05/23 @ 14:59 by Mirna Fonseca LPN) Smoking Status: Never smoker Do you dip or chew tobacco?: No Living arrangement: At home Living Condition: With spouse/s.o. Exam Exam very painful from her back pressure. no position is comfortable. abdomen is not tender. gravid and baby feels OP. cervix is completely dilated. Baby's head is in pelvis but not straight. feels OP, off center. moves some with pushing but not much. +1 station. vulva is very swollen. extremities with no edema. Conclusion/Plan Problem List (1) Prolonged rupture of membranes, greater than 24 hours, delivered, current hospitalization: Plan: has been getting Ampicillin (2) Arrest of descent, delivered, current hospitalization: (3) Delivery by section: Plan c section delivery. consents signed. risks discussed. offered to try vacuum once in OR but then decided no. Lab Results Lab results reviewed: Yes 04/26/24 04:06 04/26/24 04:06
[2024-04-27] MEDS ORDERED: LACTATED RINGERS 1,000 ML IV SCH (04:00)
--- NOTE | 2024-04-27 04:24 | ANESTHESIA POST OP EVALUATION ---
Anesthesia Post Eval Post Anesthesia Eval Vitals: Last Vital Signs Temp 37.3 C 04/27/24 04:16 Pulse 91 04/27/24 04:16 Resp 18 04/27/24 04:16 BP 113/59 L 04/27/24 04:16 Pulse Ox 97 04/27/24 04:16 CV Function Including HR & BP: Stable Pain Control: Satisfactory Nausea & Vomiting: Negative Mental Status: Baseline Respiratory Status: Airway Patent Hydration Status: Satisfactory Anesthesia Complications: None
[2024-04-27] MEDS ORDERED: KETOROLAC 30 MG/ML VIAL ONE (04:31)
[2024-04-27] MEDS: KETOROLAC 30 MG/ML VIAL IVP SCH (04:34)
[2024-04-27] MEDS: DOCUSATE SODIUM 100 MG CAPSULE PO SCH (09:16)
[2024-04-27] MEDS: oxyCODONE 5 MG TABLET PO PRN (14:32)
[2024-04-27] MEDS ORDERED: oxyCODONE 5 MG TABLET PO PRN (16:50)
[2024-04-27] MEDS: SIMETHICONE CHEW 80 MG TABLET PO PRN (17:19)
[2024-04-27] MEDS: GABAPENTIN 300 MG CAPSULE PO SCH ×2 (17:19→18:18)
[2024-04-27] MEDS: HYDROmorphone 2 MG TABLET PO PRN (17:19)
[2024-04-27] MEDS: LIDOCAINE PATCH 4% TOP SCH (17:34)
--- NOTE | 2024-04-27 20:49 | PROVIDER PROGRESS NOTE ---
Subjective Subjective Pt reports feeling: Improved Subjective: TC from RN in late afternoon today that she was very painful. oxycodone 5 mg did not help. Orders placed for oxcodone 10 mg, dilaudid 2 mg, gabapentin 300 mg, lidocaine patch and simethicone. She is feeling much better now and is happy. working on breast feeding. Vulva still feeling very swollen. ready for new ice pack. Current Medications Current Medications Current Medications: Current Medications Generic Name Dose Route Start Last Admin Trade Name Freq PRN Reason Stop Dose Admin Acetaminophen 1,000 mg 04/27/24 04:00 04/27/24 13:30 Acetaminophen 500 Mg Tablet PO 1,000 mg Q8H MARISOL Administration Diphenhydramine HCl 12.5 - 25 mg 04/26/24 19:42 Diphenhydramine Inj 50 Mg/Ml Vial IVP Q6HR PRN ITCHING Docusate Sodium 200 mg 04/27/24 09:00 04/27/24 09:16 Docusate Sodium 100 Mg Capsule PO 200 mg BID MARISOL Administration Ephedrine Sulfate 5 mg 04/26/24 19:42 Ephedrine 50 Mg/Ml Vial IVP Q5M PRN For SBP<100;give until SBP>100 Gabapentin 300 mg 04/27/24 18:00 04/27/24 18:18 Gabapentin 300 Mg Capsule PO Not Given TID [facility] Hydralazine HCl 10 mg 04/27/24 03:22 Hydralazine Inj 20 Mg/Ml Vial IVP .ONCE PRN SBP> or= 160 OR DBP> or= 110 Protocol Hydralazine HCl 5 - 20 mg 04/27/24 03:22 Hydralazine Inj 20 Mg/Ml Vial IVP Q20M PRN SBP> or= 160 OR DBP> or= 110 Protocol Hydromorphone HCl 2 mg 04/27/24 16:50 04/27/24 17:19 Hydromorphone 2 Mg Tablet PO 2 mg Q6HR PRN Administration Severe Pain (Level 7-10) Lactated Ringer's 500 mls @ 999 mls/hr 04/26/24 03:30 04/27/24 16:00 Lr IV Infused PRN PRN Infusion intolerance of labor Oxytocin/Sodium Chloride 500 mls @ 2 mls/hr 04/26/24 13:00 04/27/24 05:36 Pitocin/Sodium Chloride IV Infused TITR MARISOL Titration Protocol 2 MILLIUNIT/MIN Ropivacaine 200 mg in 100 mls @ 0 mls/hr 04/26/24 19:42 04/27/24 02:00 Naropin 0.2% EP 0 mls/hr PRN PRN Infusion PAIN Protocol Per Protocol Oxytocin/Sodium Chloride 500 mls @ 999 mls/hr 04/27/24 03:22 Pitocin/Sodium Chloride IV PRN PRN POST- HEMORR PREVENTION Protocol 999 MILLIUNIT/MIN Ibuprofen 600 mg 04/29/24 18:00 Ibuprofen 600 Mg Tablet PO Q6HR MARISOL Ketorolac Tromethamine 30 mg 04/27/24 06:00 04/27/24 17:18 Ketorolac 30 Mg/Ml Vial IVP 04/28/24 12:01 30 mg Q6HR MARISOL Administration Labetalol HCl 20 - 40 mg 04/27/24 03:22 Labetalol 20 Mg/4 Ml Syringe IVP Q10M PRN SBP> or= 160 OR DBP> or= 110 Protocol Labetalol HCl 20 mg 04/27/24 03:22 Labetalol 20 Mg/4 Ml Syringe IVP .ONCE PRN SBP> or= 160 OR DBP> or= 110 Protocol Labetalol HCl 20 - 80 mg 04/27/24 03:22 Labetalol 20 Mg/4 Ml Syringe IVP Q10M PRN SBP> or= 160 OR DBP> or= 110 Protocol Lidocaine 1 patch 04/27/24 18:00 04/27/24 17:34 Lidocaine Patch 4% TOP 1 patch DAILY MARISOL Administration Metoclopramide HCl 10 mg 04/26/24 19:42 Metoclopramide 10 Mg/2 Ml Vial IVP Q6HR PRN Nausea / Vomiting Nalbuphine HCl 2.5 - 5 mg 04/26/24 19:42 Nalbuphine 10 Mg/Ml Amp IVP Q4H PRN ITCHING Naloxone HCl 0.1 mg 04/26/24 19:42 Naloxone 0.4 Mg/Ml Vial IVP Q2M PRN RR<8 Naloxone HCl 0.4 mg 04/27/24 03:22 Naloxone 0.4 Mg/Ml Vial IVP .ONCE PRN Opioid overdose Nifedipine 10 - 20 mg 04/27/24 03:22 Nifedipine 10 Mg Capsule PO Q20M PRN SBP> or= 160 OR DBP> or= 110 Protocol Ondansetron HCl 4 mg 04/26/24 19:42 04/27/24 01:57 Ondansetron 4 Mg/2 Ml Vial IVP 4 mg Q6HR PRN Administration Nausea / Vomiting Oxycodone HCl 5 mg 04/27/24 03:22 04/27/24 14:32 Oxycodone 5 Mg Tablet PO 5 mg Q4HR PRN Administration Severe Pain 6 -10 Oxycodone HCl 10 mg 04/27/24 16:50 Oxycodone 5 Mg Tablet PO Q3HR PRN PAIN >8 Simethicone 80 mg 04/27/24 16:50 04/27/24 17:19 Simethicone Chew 80 Mg Tablet PO 80 mg TID PRN Administration Gas Objective Vital Signs/Intake & Output Vital Signs: Vital Signs x48h Temp Pulse Resp BP Pulse Ox 04/27/24 17:08 37 C 79 116/66 96 04/27/24 13:32 37.2 C 92 16 113/64 96 Intake & Output: Intake & Output 04/24/24 04/25/24 04/26/24 04/27/24 23:59 23:59 23:59 23:59 Intake Total 1768 / 1768 3992 / 3992 Output Total 150 / 150 2024 / 2024 Balance 1618 / 1618 1966 / 1966 Weight (kg) 175 lb Objective General Appearance: positive No acute distress Abdomen: positive Other (mildy tender. appropriate. bandage dry. ) Skin: positive Color nml Extremities: positive Non-tender Lab Results 04/26/24 04:06 04/26/24 04:06 Assessment/Plan Problem List (1) Prolonged rupture of membranes, greater than 24 hours, delivered, current hospitalization: Impression: no signs of infection. (2) Arrest of descent, delivered, current hospitalization: (3) Delivery by section: Impression: healing well. continue analgesia as needed. keep alfonso in until vulaa are less swollen. Hoepfully out tomorrow am.
[2024-04-28 06:06] LABS: HCT - HEMATOCRIT 26.8 % (37.0-47.0); HGB - HEMOGLOBIN 8.7 g/dL (12.0-16.0); MEAN CORPUSCULAR HEMOGLOBIN 29.4 pg (27.0-31.0); MEAN CORPUSCULAR HGB CONC 32.5 g/dL (32.0-36.0); MEAN CORPUSCULAR VOLUME 90.5 fL (81.0-99.0); MEAN PLATELET VOLUME 8.9 fL (7.9-10.8); RED BLOOD COUNT 2.96 10^6/uL (4.20-5.40); RED CELL DISTRIBUTION WIDTH 13.6 % (12.0-15.0); WHITE BLOOD COUNT 18.9 x10^3/uL (4.8-10.8)
--- NOTE | 2024-04-28 12:09 | PROVIDER PROGRESS NOTE ---
Subjective Subjective Subjective: Carli is doing well today. Pain much better managed today. Feeling more like herself. Able to ambulate to bathroom. vulvar Swelling improved from yesterday Catheter removed by RN just before rounding. Vaginal Bleeding scant, FF by labor arbitrator hearing office. Some discomfort on both sides of incision but not severe. Eating and hydrating well. Feeling much better today than yesterday. Working with RN team to breast feeding, has good positioning skills with nursing. Dressing dry and intact. Current Medications Current Medications Current Medications: Current Medications Generic Name Dose Route Start Last Admin Trade Name Freq PRN Reason Stop Dose Admin Acetaminophen 1,000 mg 04/27/24 04:00 04/28/24 05:44 Acetaminophen 500 Mg Tablet PO 1,000 mg Q8H MARISOL Administration Diphenhydramine HCl 12.5 - 25 mg 04/26/24 19:42 Diphenhydramine Inj 50 Mg/Ml Vial IVP Q6HR PRN ITCHING Docusate Sodium 200 mg 04/27/24 09:00 04/28/24 08:16 Docusate Sodium 100 Mg Capsule PO 200 mg BID MARISOL Administration Ephedrine Sulfate 5 mg 04/26/24 19:42 Ephedrine 50 Mg/Ml Vial IVP Q5M PRN For SBP<100;give until SBP>100 Gabapentin 300 mg 04/27/24 18:00 04/28/24 08:16 Gabapentin 300 Mg Capsule PO 300 mg TID MARISOL Administration Hydralazine HCl 10 mg 04/27/24 03:22 Hydralazine Inj 20 Mg/Ml Vial IVP .ONCE PRN SBP> or= 160 OR DBP> or= 110 Protocol Hydralazine HCl 5 - 20 mg 04/27/24 03:22 Hydralazine Inj 20 Mg/Ml Vial IVP Q20M PRN SBP> or= 160 OR DBP> or= 110 Protocol Hydromorphone HCl 2 mg 04/27/24 16:50 04/28/24 01:29 Hydromorphone 2 Mg Tablet PO 2 mg Q6HR PRN Administration Severe Pain (Level 7-10) Lactated Ringer's 500 mls @ 999 mls/hr 04/26/24 03:30 04/27/24 16:00 Lr IV Infused PRN PRN Infusion intolerance of labor Oxytocin/Sodium Chloride 500 mls @ 2 mls/hr 04/26/24 13:00 04/27/24 05:36 Pitocin/Sodium Chloride IV Infused TITR MARISOL Titration Protocol 2 MILLIUNIT/MIN Ropivacaine 200 mg in 100 mls @ 0 mls/hr 04/26/24 19:42 04/27/24 02:00 Naropin 0.2% EP 0 mls/hr PRN PRN Infusion PAIN Protocol Per Protocol Oxytocin/Sodium Chloride 500 mls @ 999 mls/hr 04/27/24 03:22 Pitocin/Sodium Chloride IV PRN PRN POST- HEMORR PREVENTION Protocol 999 MILLIUNIT/MIN Ibuprofen 600 mg 04/29/24 18:00 Ibuprofen 600 Mg Tablet PO Q6HR [facility] Labetalol HCl 20 - 40 mg 04/27/24 03:22 Labetalol 20 Mg/4 Ml Syringe IVP Q10M PRN SBP> or= 160 OR DBP> or= 110 Protocol Labetalol HCl 20 mg 04/27/24 03:22 Labetalol 20 Mg/4 Ml Syringe IVP .ONCE PRN SBP> or= 160 OR DBP> or= 110 Protocol Labetalol HCl 20 - 80 mg 04/27/24 03:22 Labetalol 20 Mg/4 Ml Syringe IVP Q10M PRN SBP> or= 160 OR DBP> or= 110 Protocol Lidocaine 1 patch 04/27/24 18:00 04/27/24 17:34 Lidocaine Patch 4% TOP 1 patch DAILY [facility] Administration Metoclopramide HCl 10 mg 04/26/24 19:42 Metoclopramide 10 Mg/2 Ml Vial IVP Q6HR PRN Nausea / Vomiting Nalbuphine HCl 2.5 - 5 mg 04/26/24 19:42 Nalbuphine 10 Mg/Ml Amp IVP Q4H PRN ITCHING Naloxone HCl 0.1 mg 04/26/24 19:42 Naloxone 0.4 Mg/Ml Vial IVP Q2M PRN RR<8 Naloxone HCl 0.4 mg 04/27/24 03:22 Naloxone 0.4 Mg/Ml Vial IVP .ONCE PRN Opioid overdose Nifedipine 10 - 20 mg 04/27/24 03:22 Nifedipine 10 Mg Capsule PO Q20M PRN SBP> or= 160 OR DBP> or= 110 Protocol Ondansetron HCl 4 mg 04/26/24 19:42 04/27/24 01:57 Ondansetron 4 Mg/2 Ml Vial IVP 4 mg Q6HR PRN Administration Nausea / Vomiting Oxycodone HCl 5 mg 04/27/24 03:22 04/27/24 14:32 Oxycodone 5 Mg Tablet PO 5 mg Q4HR PRN Administration Severe Pain 6 -10 Oxycodone HCl 10 mg 04/27/24 16:50 Oxycodone 5 Mg Tablet PO Q3HR PRN PAIN >8 Simethicone 80 mg 04/27/24 16:50 04/27/24 17:19 Simethicone Chew 80 Mg Tablet PO 80 mg TID PRN Administration Gas Objective Vital Signs/Intake & Output Vital Signs: Vital Signs x48h Temp Pulse Resp BP Pulse Ox 04/28/24 09:11 36.8 C 84 15 104/65 99 04/28/24 05:53 36.6 C 67 16 112/71 98 Intake & Output: Intake & Output 04/25/24 04/26/24 04/27/24 04/28/24 23:59 23:59 23:59 23:59 Intake Total 1768 / 1768 3992 / 3992 Output Total 150 / 150 2024 / 2024 1250 / 1250 Balance 1618 / 1618 1966 / 1966 -1250 / -1250 Weight (kg) 175 lb Lab Results 04/28/24 06:00 04/26/24 04:06 Other Labs: Lab Results x24hrs 04/28/24 Range/Units 06:00 WBC 18.9 H (4.8-10.8) x10^3/uL RBC 2.96 L (4.20-5.40) 10^6/uL Hgb 8.7 L (12.0-16.0) g/dL Hct 26.8 L (37.0-47.0) % MCV 90.5 (81.0-99.0) fL MCH 29.4 (27.0-31.0) pg MCHC 32.5 (32.0-36.0) g/dL RDW 13.6 (12.0-15.0) % Plt Count 265 (130-450) 10^3/uL MPV 8.9 (7.9-10.8) fL Assessment/Plan Problem List (1) Prolonged rupture of membranes, greater than 24 hours, delivered, current hospitalization: (2) Arrest of descent, delivered, current hospitalization: (3) Delivery by section:
[2024-04-28] MEDS ORDERED: IBUPROFEN 600 MG TABLET PO ONE (18:28)
[2024-04-28] MEDS: IBUPROFEN 600 MG TABLET PO SCH (18:41)
--- NOTE | 2024-04-28 19:25 | PROVIDER PROGRESS NOTE ---
Subjective Subjective Pt reports feeling: Improved Subjective: doing quite well, voiding, passing gas. breast feeding. eating and drinking. Current Medications Current Medications Current Medications: Current Medications Generic Name Dose Route Start Last Admin Trade Name Jorgeq PRN Reason Stop Dose Admin Acetaminophen 1,000 mg 04/27/24 04:00 04/28/24 14:08 Acetaminophen 500 Mg Tablet PO 1,000 mg Q8H MARISOL Administration Diphenhydramine HCl 12.5 - 25 mg 04/26/24 19:42 Diphenhydramine Inj 50 Mg/Ml Vial IVP Q6HR PRN ITCHING Docusate Sodium 200 mg 04/27/24 09:00 04/28/24 08:16 Docusate Sodium 100 Mg Capsule PO 200 mg BID MARISOL Administration Gabapentin 300 mg 04/27/24 18:00 04/28/24 14:08 Gabapentin 300 Mg Capsule PO 300 mg TID MARISOL Administration Hydromorphone HCl 2 mg 04/27/24 16:50 04/28/24 01:29 Hydromorphone 2 Mg Tablet PO 2 mg Q6HR PRN Administration Severe Pain (Level 7-10) Lactated Ringer's 500 mls @ 999 mls/hr 04/26/24 03:30 04/27/24 16:00 Lr IV Infused PRN PRN Infusion intolerance of labor Ibuprofen 600 mg 04/28/24 19:00 04/28/24 18:41 Ibuprofen 600 Mg Tablet PO 600 mg Q6HR MARISOL Administration Lidocaine 1 patch 04/27/24 18:00 04/28/24 19:18 Lidocaine Patch 4% TOP Not Given DAILY MARISOL Metoclopramide HCl 10 mg 04/26/24 19:42 Metoclopramide 10 Mg/2 Ml Vial IVP Q6HR PRN Nausea / Vomiting Nalbuphine HCl 2.5 - 5 mg 04/26/24 19:42 Nalbuphine 10 Mg/Ml Amp IVP Q4H PRN ITCHING Naloxone HCl 0.1 mg 04/26/24 19:42 Naloxone 0.4 Mg/Ml Vial IVP Q2M PRN RR<8 Naloxone HCl 0.4 mg 04/27/24 03:22 Naloxone 0.4 Mg/Ml Vial IVP .ONCE PRN Opioid overdose Ondansetron HCl 4 mg 04/26/24 19:42 04/27/24 01:57 Ondansetron 4 Mg/2 Ml Vial IVP 4 mg Q6HR PRN Administration Nausea / Vomiting Oxycodone HCl 5 mg 04/27/24 03:22 04/27/24 14:32 Oxycodone 5 Mg Tablet PO 5 mg Q4HR PRN Administration Severe Pain 6 -10 Oxycodone HCl 10 mg 04/27/24 16:50 Oxycodone 5 Mg Tablet PO Q3HR PRN PAIN >8 Simethicone 80 mg 04/27/24 16:50 04/27/24 17:19 Simethicone Chew 80 Mg Tablet PO 80 mg TID PRN Administration Gas Objective Vital Signs/Intake & Output Reviewed Vital Signs: Yes Vital Signs: Vital Signs x48h Temp Pulse Resp BP Pulse Ox 04/28/24 18:03 36.8 C 86 16 119/73 96 04/28/24 14:09 37 C 89 17 103/60 97 Intake & Output: Intake & Output 04/25/24 04/26/24 04/27/24 04/28/24 23:59 23:59 23:59 23:59 Intake Total 1768 / 1768 3992 / 3992 Output Total 150 / 150 2024 / 2024 2950 / 2950 Balance 1618 / 1618 1966 / 1966 -2950 / -2950 Weight (kg) 175 lb Objective General Appearance: positive No acute distress Abdomen: positive Non-tender and Other (incision with steristrips. some redness well above on her abdomen that is not bothering her and a typical rash for her. ) Extremities: positive Non-tender and No pedal edema Lab Results 04/28/24 06:00 04/26/24 04:06 Other Labs: Lab Results x24hrs 04/28/24 Range/Units 06:00 WBC 18.9 H (4.8-10.8) x10^3/uL RBC 2.96 L (4.20-5.40) 10^6/uL Hgb 8.7 L (12.0-16.0) g/dL Hct 26.8 L (37.0-47.0) % MCV 90.5 (81.0-99.0) fL MCH 29.4 (27.0-31.0) pg MCHC 32.5 (32.0-36.0) g/dL RDW 13.6 (12.0-15.0) % Plt Count 265 (130-450) 10^3/uL MPV 8.9 (7.9-10.8) fL Assessment/Plan Problem List (1) Prolonged rupture of membranes, greater than 24 hours, delivered, current hospitalization: Impression: no signs of infection (2) Arrest of descent, delivered, current hospitalization: (3) Delivery by section: Impression: recovering well. should be ready for discharge tomorrow.
[2024-04-29 02:34] VITALS: O2SAT 98
[2024-04-29 05:36] VITALS: BP 112/62; TEMP 97.9
--- NOTE | 2024-04-29 08:30 | Discharge Summary ---
Discharge Summary Admit Date: 04/26/24 Discharge Date: 04/29/24 Discharging Provider: Alonzo Ruiz MD Code Status: Attempt Resuscitation DIAGNOSES Admission Diagnoses: Spontaneous rupture membranes 40 weeks gestation GBS positive Marginal cord insertion Discharge Diagnoses with Status of Each Condition: Status post primary low-transverse section Delivery of live davis Acute blood loss anemia HPI History of Present Illness: Subjective Patient reports she is doing well. Lochia appropriate. Denies heavy bleeding. Ambulating. Pelvic and abdominal pain well-controlled. Tolerating oral intake. Diet: Regular. Voiding without difficulty. Passing flatus. Denies BM. Patient is bonding with baby in room Breast feeding going well. Denies feeling lightheaded, dizzy or excessively fatigued. Objective General: Alert, oriented, no apparent distress. Cardiovascular: Regular rate. Regular rhythm. Lungs: No increased work of breathing. Abdomen: Uterus firm. Below umbilicus. No guarding or rebound. Extremities: No pain on palpation. No cords palpated. Distal pulses intact. Incision: Clean, dry, and intact. HOSPITAL COURSE Hospital Course: Patient was admitted at 40 weeks gestation for labor and rupture of membranes. She had prolonged rupture of membranes. She had a min category 2 tracing and had an IUPC and amnioinfusion. She had oxytocin for augmentation. She pushed for 3 hours, but was still remote from delivery, so she proceeded with a low- transverse section. section was uncomplicated. Postoperative course was also unremarkable. She was discharged on day 2 with her . ALLERGIES Allergies Allergy/AdvReac Type Severity Reaction Status Date / Time cat dander Allergy Severe Unknown Verified 04/25/24 13:08 dog dander Allergy Severe Unknown Verified 04/25/24 13:08 house dust Allergy Severe Unknown Verified 04/25/24 13:08 tree and shrub pollen Allergy Severe Unknown Verified 04/25/24 13:08 MEDICATIONS Ambulatory Orders Medication Instructions Recorded Confirmed cetirizine 10 mg tablet (Zyrtec) 10 mg PO QDAY PRN allergy symptoms 12/08/23 04/26/24 famotidine 10 mg tablet (Pepcid AC) 10 mg PO QDAY 12/08/23 04/26/24 vits no.126-ferrous fum 1 tab PO DAILY 12/08/23 04/26/24 28 mg iron-folic acid 800 mcg tablet (Classic ) acetaminophen 500 mg tablet 1,000 mg (2 x 500 mg) PO Q8H #30 04/29/24 tabs docusate sodium 100 mg capsule 200 mg (2 x 100 mg) PO BID #30 caps 04/29/24 hydromorphone 2 mg tablet 2 mg PO Q4H PRN Severe Pain #14 04/29/24 tabs hydromorphone 2 mg tablet 2 mg PO Q6HR PRN Severe Pain 04/29/24 (Level 7-10) #14 tabs ibuprofen 600 mg tablet 600 mg PO Q6HR #30 tabs 04/29/24 LABS 04/28/24 06:00 04/26/24 04:06 FOLLOW UP Follow Up: With [facility] in [facility] week TIME SPENT Time Spent in Discharge (Minutes): 20 Discharge Plan Discharge Patient Disposition: 01 Home, Self Care Condition: Stable Medically Cleared Date:: 04/29/24 Prescriptions: New ibuprofen 600 mg Tablet 600 mg PO Q6HR Qty: 30 0RF hydromorphone 2 mg Tablet 2 mg PO Q6HR PRN (Reason: Severe Pain (Level 7-10)) Qty: 14 0RF hydromorphone 2 mg tablet 2 mg PO Q4H PRN (Reason: Severe Pain) Qty: 14 0RF acetaminophen 500 mg Tablet 1,000 mg PO Q8H Qty: 30 0RF docusate sodium 100 mg Capsule 200 mg PO BID Qty: 30 0RF Continued Classic 28 mg iron- 800 mcg tablet 1 tab PO DAILY cetirizine [Zyrtec] 10 mg tablet 10 mg PO QDAY PRN (Reason: allergy symptoms) famotidine [Pepcid AC] 10 mg tablet 10 mg PO QDAY Discontinued aspirin 81 mg tablet,delayed release (DR/EC) 81 mg PO QDAY Diet: Regular Print Language: [place] Patient Instructions: Depression , C Section Dc Follow-up Care: Geeta Bernal ARNP [Provider Admit Priv/Credential] - Brandi Thompson MD [Provider Admit Priv/Credential] - 05/06/24 1:45 pm
--- NOTE | 2024-04-29 15:31 | Labor Flowsheet ---
Labor Flowsheet Datetime Report Generated by CPN: 04/29/2024 15:30 Datetime: 04/27/2024 02:00 VITAL SIGNS NBP Sys/Tequila/Mean (mmHg): 103 : 57 : 68 Pulse: 103 UTERINE ACTIVITY Monitor Mode: External Frequency (min): 3 Pattern: Normal: <= 5 Contractions in 10 Minutes ASSESSMENT A Monitor Mode: External US FHR Baseline Rate : 140 Variability: Moderate 6-25 bpm Decelerations: Late Category: Category II Oxygen Method: Room Air LaborFlag: Labor Datetime: 04/27/2024 01:45 Duration (sec): 60 Contraction Comments: ctx tracing inverted Datetime: 04/27/2024 01:30 Comments: RN and CNM continuously at bedside and are assessing fhr/toco q5mins Communication Comments: Dr. hTompson discussed risks/benefits of vs continuing towards vagin al delivery, pt consented for Datetime: 04/27/2024 01:18 Stage 2 Comments: CNM out of room to consult with Dr. Thompson Datetime: 04/27/2024 01:15 Quality: Strong Resting Tone (Palpate): Relaxed Datetime: 04/27/2024 01:14 Pushing Position: Pushing Lithotomy Datetime: 04/27/2024 00:44 Actions for Decelerations: Side to Side Datetime: 04/27/2024 00:15 Accelerations: 15X15 Datetime: 04/26/2024 23:49 I/O Interventions: Straight Cath (ml) @ 100 Datetime: 04/26/2024 22:30 VAGINAL EXAM Dilatation (cm): 10.0 Exam by: Geeta B. CNM Membranes Ruptured Date/Time: 04/26/2024 00:00 Datetime: 04/26/2024 22:08 STAGE 2 Pushing: Coached on Pushing Datetime: 04/26/2024 22:04 SpO2 (%): 99 Datetime: 04/26/2024 21:57 Station: 1 Datetime: 04/26/2024 21:41 Respirations: 16 Temperature (C): 37.3 Datetime: 04/26/2024 20:30 PATIENT CARE Oxygen Amount (LPM): 10 Datetime: 04/26/2024 20:00 Resting Tone IUP (mmHg): 20 Intensity IUP (mmHg): 35-65 [place] Units (mmHg): 105 Datetime: 04/26/2024 19:45 Pitocin Checklist: At Least 1 Acceleration of 15 bpm x 15 Seconds in 30 Minutes or Adequate Variabi lity; No More than 1 Late Deceleration Occurred in Past 30 Minutes; No More than 2 Variable Decelerat ions > 60 Seconds in Duration and decreasing >60 bpm in 30 minutes; No More than 5 Uterine Contractio ns in 10 Minutes for any 20 Minute Interval; Uterus Palpates Soft between Contractions; IUPC Resting Tone less than 25 mmHg Datetime: 04/26/2024 19:19 Patient Position/Activity: Right Tilt Datetime: 04/26/2024 19:08 Epidural Procedure: Cath Placed Datetime: 04/26/2024 18:59 PROCEDURE TIME OUT Procedure Verify: Correct Patient Identity; Correct Side and Site are Marked; Accurate Procedure Co nsent Form; Agreement on Procedure to be Done; Correct Patient Position; Relevant Images and Results are Properly Labeled and Displayed; Addressed Need to Administer Antibiotics or Fluids for Irrigation ; Safety Precautions Based on Patient History or Medication Use ANESTHESIA Anesthesia Plans: Epidural Epidural Positioning: Sitting Datetime: 04/26/2024 18:58 MEDICATIONS Pitocin (milliunits): Discontinued Medication Comments: stopped at this time due to inability to track fht during epidural procedure. will continue infusion when procedure is complete. Datetime: 04/26/2024 18:47 Anesthesia Comments: anesthesia at bedside Datetime: 04/26/2024 18:34 Effacement (%): 100 Datetime: 04/26/2024 17:43 Hygiene: Partial Bath; Complete Bath Datetime: 04/26/2024 17:30 PAIN Pain Scale: 8 Pain Presence: Intermittent Pain Type: Contraction Pain Location: Abdomen Pain Relief Measures: Comfort Measures Pain Coping: Breathing Through Contractions Comfort Measures: Breathing/Relaxation; Coaching; Back Rub Given; Hypnotherapy Datetime: 04/26/2024 17:25 Amniotic Fluid Color: Clear Membrane Comments: peripad weighed. 9mL Datetime: 04/26/2024 16:53 Patient Care Comments: pt at bedside leaning over bed. Datetime: 04/26/2024 16:46 Pain Assessment Comments: pt d/c nitrious oxide at this time Datetime: 04/26/2024 16:40 Teaching Comments: nitrous education provided when nitrous began Datetime: 04/26/2024 13:54 Monitor Interventions for UA: IUPC Inserted Membranes Rupture Method: Artificial Amniotic Fluid Amount: Scant Amniotic Fluid Odor: None Datetime: 04/26/2024 12:33 Antibiotics: Ampicillin IV 1 Gm Datetime: 04/26/2024 10:32 Stage of : Labor Provider Reviewed Strip: Yes COMMUNICATION Communication: RN at Bedside; RN Reviewed Strip Notification Reason: Status Update Datetime: 04/26/2024 08:30 MATERNAL ASSESSMENT Level of Consciousness: Alert DTR's/Clonus: DTRs Absent Headache: Denies Breath Sounds, Left: Clear and Equal Breath Sounds, Right: Clear and Equal Nausea/Vomiting: Denies RUQ Epigastric Pain: Denies TEACHING Instructional Method: Verbal Plan of Care: Plan of Care Discussed Labor/Induction: Cervical Ripening; Augmentation Pain Management: IV Narcotics; Epidural; PRN Medications; Pain Scale/Goals; Comfort Measures Medications: Antibiotics; IV Narcotics; Cervical Ripening; Pitocin Related: Maternal Physical Changes; Maternal Emotional Changes; Nutrition; Hydration; Act ivity and Rest Datetime: 04/26/2024 08:01 Unit Routine: [place] to Room; Call [place]; Bed; Visiting Policy; Unit Personnel; Monitoring Datetime: 04/26/2024 06:29 FHR Baseline Changes: No Baseline Change Datetime: 04/26/2024 04:27 Pain Goal: 10 (Annotations: Pt using hypnotherapy and partner support for pain mgmt at this time. ) Datetime: 04/26/2024 03:20 Provider Notified (Name): CNM Burckhardt Datetime: 04/26/2024 03:08 Vaginal Bleeding: Normal Show Cervix, Consistency: Soft Cervix, Position: Midposition Datetime: 04/26/2024 02:50 ROM Test Kit: Positive Datetime: 04/26/2024 02:30 Membrane Status: Ruptured Datetime: 04/26/2024 02:07 Temperature Route: Oral
== END 2024-04-29 14:35 | disposition home or self-care (01) | DRG 787 ==
LOC: WFO 01:40 → FBP 01:42
PROVIDERS: ADMIT Nurse Practitioner; ATTEND Nurse Practitioner
DX: Z37.0 Single live birth; Z79.899 Other long term (current) drug therapy; O69.89X0 Labor and delivery complicated by other cord complications, not applicable or unspecified; O32.4XX0 Maternal care for high head at term, not applicable or unspecified; O76 Abnormality in fetal heart rate and rhythm complicating labor and delivery; O90.81 Anemia of the puerperium; O99.824 Streptococcus B carrier state complicating childbirth; Z79.82 Long term (current) use of aspirin; O63.1 Prolonged second stage (of labor); Z3A.40 40 weeks gestation of pregnancy; O48.0 Post-term pregnancy; D62 Acute posthemorrhagic anemia